=== PATIENT | male | born 2000 | race Caucasian/White ===

== ENCOUNTER 2020-08-08 14:23 | Outpatient (REF) | payer SELFPAY | END 2020-08-08 14:24 | disposition home or self-care (01) | LOC: HO.LAB 14:23 | PROVIDERS: Visit Provider Internal Medicine | DX: Z20.828 Contact with and (suspected) exposure to other viral communicable diseases (principal) | CPT/HCPCS: 87635 ==

== ENCOUNTER 2024-12-30 10:20 | Emergency (ER) | payer BC, SELFPAY ==
[2024-12-30 10:30] VITALS: BP 133/86; PULSE 87; RESP 20; TEMP 36.8; O2SAT 97; BMI 27.2
--- OUTSIDE RECORDS SUMMARY | 2024-12-30 10:47 | XMS_ITS | Clinical Summary ---
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 Role Phone Unavailable Primary Care Provider Unavailabl e Social History Tobacco Use Types Packs/Day Years Used Date Smoking Tobacco: Never Assessed Sex and Gender Information Value Date Recorded Sex Assigned at Male 08/23/2022 10:17 AM EDT Legal Sex Male 10:17 AM EDT Gender Identity Male 08/23/2022 10:17 AM EDT Sexual Orientation Straight 08/23/2022 10 :17 AM EDT Plan of Treatment Health Maintenance Due Date Last Done Comments Depression Screening 1999 Alcohol/Substance Use Screening 2011 Tobacco Screening 2011 Family Planning (PISQ) 2014 DTaP/Tdap/Td Vaccines (6 - Td or Tdap) 08/13/2021 08/13/2011, 08/23/2003, 09/03/2000, Additional history exists COVID-19 Vaccine (2023- season) 2024 Influenza Vaccine (#1) 2024 09/20/2016, 2010 Zoster Vaccines (1 of 2) 2049 RSV Patients and Patients Aged 60 years or older (1 - 1-dose 75+ series) 2074 Hepatitis B Vaccines Completed 1999, 1999, 1999 HIB Vaccines Completed 07/19/2000, 10/24, 1999, Additional history exists IPV Vaccines Completed 08/23/2003, 01/2000, 1999, Additional history exists HPV Vaccines Completed 05/14/2015, 02/21, 08/13/2011 Hepatitis A Vaccines Completed 09/20/2016, 05/14/20 15 Meningococcal Vaccine Completed 09/20/2016, 011 Pneumococcal Vaccine: Pediatrics (0 to 5 Years) and At-Risk Patients (6 to 49) Years) Aged Out No longer eligible based on patient's age to complete this topic RSV under 20 months Aged Out No longe r eligible based on patient's age to complete this topic Rotavirus Vaccines Aged Out No longer eligible based on patient's age to complete this topic
[2024-12-30 10:58] LABS: IDNOW Serial# 6674DD1D; Strep A Nucleic Acid Positive (Negative)
[2024-12-30 11:22] LABS: Influenza A PCR NEGATIVE (Negative); Influenza B PCR NEGATIVE (Negative); Resp Syncy Virus RNA Qual PCR NEGATIVE (Negative); SARS COV2 PCR INHOUSE NEGATIVE (Negative)
--- NOTE | 2024-12-30 11:29 | ED.URI ---
HPI - URI/Sore Throat General Chief Complaint: Upper Respiratory Symptoms Stated Complaint: throat pain Time Seen by Provider: 12/30/24 11:27 Source: patient Mode of arrival: ambulatory Limitations: no limitations History of Present Illness ED Provider: TALITA JULIAN Narrative: 24 yo male with no sig PMH here with c/o sore throat x 2 days pain with swallowing no known sick contacts, no fevers. Has a slight runny nose. Able to eat and drink. MD elicited complaint: sore throat Onset (ago): day(s) (2) Consistency: constant Severity: moderate Description of mucous: clear Able to tolerate fluids by mouth: Yes Exacerbating factors: swallowing Relieving factors: nothing Associated symptoms: rhinorrhea and sore throat Treatments prior to arrival: none Related Data Previous Rx's ?Medication ?Instructions ?Recorded amoxicillin 500 mg capsule 500 mg PO BID 10 days #20 caps 12/30/24 Allergies Allergy/AdvReac Type Severity Reaction Status Date / Time No Known Allergies Allergy Verified 12/30/24 10:32 Review of Systems Review of Systems: Constitutional : no Fever, no Chills, no fatigue, no Malaise ENT/Mouth : positive sore throat, positive runny nose Eyes: No Discharge Cardiovascular : No Chest Pain, No SOB Respiratory : No Cough, No Sputum Gastrointestinal : No Nausea, No Vomiting, No Diarrhea Genitourinary : No Dysuria, No Urinary Frequency Musculoskeletal : no Myalgia Skin : No rash Neuro : No Headache All other systems reviewed and are negative [facility] Past Medical History Attestation statement: The following information was validated with the patient. Source: old records reviewed Medical History (Updated 12/30/24 @ 11:37 by Marcia Ruiz DO) No pertinent past medical history Social History Social History (Updated 12/30/24 @ 11:37 by Marcia Ruiz DO) Patient Tobacco Use Status: Never used Tobacco Physical Exam Vital Signs: Vital Signs: Last Vital Signs Temp 98.3 F 12/30/24 10:30 Pulse 87 12/30/24 10:30 Resp 20 12/30/24 10:30 BP 133/86 12/30/24 10:30 Pulse Ox 97 12/30/24 10:30 O2 Del Method Room Air 12/30/24 10:30 BMI result Body Mass Index 27.2 Appearance: Alert. Oriented X3. No acute distress. Eyes: Pupils equal, round and reactive to light. ENT: Pharynx moderate erythema and exudates on both tonsils mild tonsilar swelling normal voice no drooling no stridor - uvula is midline Neck: Normal inspection. Neck supple. CVS: Normal heart rate and rhythm. Pulses normal. Respiratory: No respiratory distress. Breath sounds normal. Abdomen: Soft and nontender. Skin: Skin warm and dry. Normal skin color. Extremities: No lower extremity edema. Neuro: Oriented X 3. No motor deficit. No sensory deficit. 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 Can be managed as outpatient. Differential Diagnosis Differential Diagnoses: The differential diagnosis associated with the presentation includes viral syndrome, strep throat Admission/Observation Consideration of admission/observation: Escalation of care including admission/observation considered no toxic stable for outpatient management Lab Data [facility] Lab Attestation statement: I reviewed the patient's lab results. + strep start on amoxicillin Labs: Lab Results 12/30/24 Range/Units 10:41 Influenza Type A (PCR) NEGATIVE (Negative) Influenza Type B (PCR) NEGATIVE (Negative) RSV RNA Qual (PCR) NEGATIVE (Negative) SARS-CoV-2 RNA (RT-PCR) NEGATIVE (Negative) S. pyogenes GrpA JILLIAN Positive A (Negative) Prescription Management I considered prescription management with: Antibiotic Discharge Plan Discharge Clinical Impression: Strep pharyngitis Patient Disposition: Home, Self-Care Instructions: Strep Throat (ED) Additional Instructions: return for any worsening symptoms or concerns stay hydrated not infective 12 hours after first dose of antibiotis throw toothbrush away after 24 hours finish all antibiotics Prescriptions: New amoxicillin 500 mg capsule 500 mg PO BID 10 Days Qty: 20 0RF Print Language: Maltese
[2024-12-30 11:33] VITALS: BP 133/86; PULSE 87; RESP 20; TEMP 36.8; O2SAT 97
[2024-12-30 11:34] VITALS: BP 133/86; PULSE 87; RESP 20; TEMP 36.8; O2SAT 97
== END 2024-12-30 11:35 | disposition home or self-care (01) ==
PROVIDERS: Emergency Provider Emergency Medicine
DX: J02.0 Streptococcal pharyngitis (principal); R13.10 Dysphagia, unspecified; R09.89 Other specified symptoms and signs involving the circulatory and respiratory systems; Z03.818 Encounter for observation for suspected exposure to other biological agents ruled out
CPT/HCPCS: 0241U; 87651; 99282; 99283